=== PATIENT | male | born 1985 | race Caucasian/White ===

== ENCOUNTER 2017-11-14 07:13 | Day surgery (SDC) | payer BC ==
--- NOTE | 2017-11-08 12:13 | HP ---
PREOPERATIVE HISTORY AND PHYSICAL: DATE OF SURGERY/ADMISSION: 11/14/17 [facility] DATE OF OFFICE VISIT/ENCOUNTER: 11/06/17 ATTENDING SURGEON: June Robert MD * (DICTATED BY XI HOUSTON) PROCEDURE: Excision of mass, left ring finger. CHIEF COMPLAINT: Mass, left ring finger. HISTORY OF PRESENT ILLNESS: This is a 31-year-old male who has a mass on the volar aspect of his left ring finger. It has been present since July 2017. He does not recall any specific injury. Initially, he had a lot of bleeding associated with it whenever he would bump it; however, that has subsided for the most part. He was diagnosed with a pyogenic granuloma. He was seen by hand surgeon in [place] and was going to have surgery, but the surgeon got injured, so he was referred to Dr. Robert for a followup evaluation. He would like to have the mass removed. This is his nondominant hand. PAST MEDICAL HISTORY: Prediabetes. PAST SURGICAL HISTORY: Pilonidal cyst excision in 2003. CURRENT MEDICATIONS: Metformin daily. ALLERGIES: No known drug allergies. FAMILY MEDICAL HISTORY: Diabetes, hypertension, pancreatic cancer. 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 He denies tobacco use or recreational drug use, and does not drink alcohol. REVIEW OF SYSTEMS: General: Negative for fevers, chills, night sweats, unexplained weight loss/gain. No known anesthesia problems. HEENT: Negative for headache, lightheadedness, or syncopal episodes. Integumentary: Negative for abrasions, lesions, or open wounds. Cardiothoracic: Negative for hypertension, chest pain, palpitations, edema. Respiratory: Negative for shortness of breath with exertion, chronic cough, wheezing. GI: Negative for nausea, vomiting, diarrhea, constipation, or GERD. : Negative for nocturia, urinary frequency, urgency, history of UTIs, or kidney problems. Musculoskeletal: Positive for current complaints. Negative for chronic or intermittent back pain or history of fractures. Neurologic: Negative for paresthesias, numbness, history of seizure, stroke, poor balance. Endocrine: Positive for prediabetes. Negative for thyroid issues. Hematologic: Negative for easy bruising, anemia, bleeding disorders, history of DVT. Infectious Disease: Negative for history of MRSA, hepatitis C, HIV. PHYSICAL EXAMINATION GENERAL: Well-developed, well-nourished 31-year-old male in no acute distress. VITAL SIGNS: Height 6 feet tall, weight 317 pounds, pulse rate 75, blood pressure 132/86. HEENT: Normocephalic, atraumatic. Pupils are equal, round, and reactive to light and accommodation. Extraocular movements are intact. Throat is clear. NECK: Supple. No palpable lymph nodes. PULMONARY: Lungs are clear to auscultation bilaterally. No wheezes, rales, or rhonchi. CARDIOVASCULAR: Regular rate and rhythm. S1, S2. No murmurs, rubs, or gallops. No edema. ABDOMEN: Positive bowel sounds. Soft, nontender. MUSCULOSKELETAL: On exam of the left hand, he has a pyogenic granuloma on the ring finger overlying the middle phalanx. It is currently not bleeding. It is tender to palpation. He has good range of motion of his finger. The granuloma is about a centimeter in diameter. Neurovascular function is intact. NEUROLOGICAL: Alert and oriented x3. Cranial nerves II through XII are intact. Sensation is intact to light touch. IMPRESSION: Left ring finger pyogenic granuloma. PLAN: The patient is scheduled to undergo an excision of mass from left ring finger with Dr. Robert on 11/14/17. He will return to the office 10 days postop for followup and suture removal. A prescription for Ultracet was e-scribed to the patient's pharmacy for postoperative pain management. XI HOUSTON [id number]/[facility] #: [id number] [facility] HOSPITALMaryanne
[~2017-11-14 07:13] MED LIST: Buffered Lidocaine 0.9% SYRIN* 5 ML/SYR SYRINGE INTRADERM ONE
[2017-11-14] MEDS ORDERED: Lidocaine 1%* 5 ML VIAL ONE ×2 (08:03→09:12)
[2017-11-14] MEDS ORDERED: Naloxone* 0.4 MG/ML 1 ML VIAL IV PRN (08:27)
[2017-11-14] MEDS ORDERED: Lidocaine 2% PF * 5 ML VIAL ONE (09:16)
[2017-11-14] MEDS ORDERED: Propofol* 10 MG/ML 20 ML BTL IV PUSH ONE (09:16)
[2017-11-14] MEDS ORDERED: Labetalol IV* 5 MG/ML 20 ML VIAL ONE (09:20)
[2017-11-14 09:27] VITALS: BP 136/72
--- NOTE | 2017-11-14 13:44 | OP ---
CC: Dr. Robert* OPERATIVE REPORT: DATE OF OPERATION: 11/14/17 - [facility] DATE OF : 85 SURGEON: June Robert MD [employer]LLER AND REAMER: XI Jones ANESTHESIOLOGIST: Jose Angel Kan DO ANESTHESIA: Local MAC. PRE-OP DIAGNOSIS: Left ring finger mass. POST-OP DIAGNOSIS: Left ring finger mass. OPERATIVE PROCEDURE: Removal of left ring finger mass. INDICATIONS: Oswaldo is a 31-year-old male, who has a painful mass on the volar aspect of his left ring finger. Clinically, it is a pyogenic granuloma. He has suffered from abundant bleeding from this. He presents for removal. ESTIMATED BLOOD LOSS: Zero. TOURNIQUET TIME: About 10 minutes. DESCRIPTION OF PROCEDURE: The patient was brought to the operating room and was given a sedation anesthetic and a digital block with 10 cc of 1% plain lidocaine. Skin of his left hand and forearm was prepped and draped in the usual sterile fashion. The hand and forearm were exsanguinated and the tourniquet elevated to 250 mmHg. An elliptical incision with a slight margin around the wound was made and the entire ellipse was removed. The wound was not deeper than the skin. The skin edges were slightly elevated and then the wound was irrigated. The skin edges were reapproximated with 4-0 nylon suture. There was no gapping or tension on the closure. The wound was dressed with Xeroform, 4x4, Webril, and Coban. The patient tolerated the procedure well and was brought to the recovery room in good condition. [id number]/[facility] #: [id number] [facility]
== END 2017-11-14 09:45 | disposition home or self-care (01) ==
LOC: OREAST 07:13
PROVIDERS: ATTEND Orthopaedic Surgery
DX: D18.01 Hemangioma of skin and subcutaneous tissue (principal); R73.03 Prediabetes; R03.0 Elevated blood-pressure reading, without diagnosis of hypertension
CPT/HCPCS: 88305; J2704